=== PATIENT | male | born 1965 | race Caucasian/White ===

== ENCOUNTER 2017-04-19 09:54 | Emergency (ER) | payer BC ==
[2017-04-19 11:03] VITALS: BP 101/76
--- NOTE | 2017-04-19 11:11 | EDM.PDOC ---
ED HPI GENERAL MEDICAL PROBLEM - General Chief Complaint: Lower Extremity Injury/Pain Stated Complaint: LEG PAIN [id number] Time Seen by Provider: 04/19/17 11:21 Source of Information: Reports: Patient History Limitations: Reports: No Limitations - History of Present Illness INITIAL COMMENTS - FREE TEXT/NARRATIVE: Patient comes emergency department today complaining of right posterior calf pain. Just prior to arrival the patient was working outside when a log was coming towards him and he jumped backwards landing on his feet and developed right posterior calf pain with ambulation. He denies any lung force trauma to his right lower extremity. He denies any hip femur knee ankle or right foot pain. He does have pain with ambulation in the posterior aspect of his calf. He has not taken anything for pain prior to arrival. A sharp shooting stabbing in nature. Ice is applied upon arrival. Right Lower Leg Pain Score (Numeric/FACES): 4 - Related Data Allergies Allergy/AdvReac Type Severity Reaction Status Date / Time Penicillins Allergy Cannot Verified 04/19/17 10:27 Remember tetanus toxoid, adsorbed Allergy Cannot Verified 04/19/17 10:27 Remember Home Meds: Home Meds Aspirin [Ecotrin] 81 mg PO DAILY 10/01/13 [History] DULoxetine [Cymbalta] 60 mg PO DAILY 10/01/13 [History] Enalapril [Vasotec] 2.5 mg PO DAILY 10/01/13 [History] Fish Oil/[place]-3 Fatty Acids [Fish Oil] 1 gm PO BID 10/01/13 [History] Gabapentin [Gabapentin] 300 mg PO QID 10/01/13 [History] Simvastatin [Zocor] 40 mg PO BEDTIME 10/01/13 [History] metFORMIN [metFORMIN XR] 1,000 mg PO BIDM 10/01/13 [History] traMADol [Ultram] 50 mg PO Q6HR PRN 10/01/13 [History] Meloxicam [Mobic] 15 mg PO DAILY 05/07/16 [History] Cyclobenzaprine [Flexeril] 10 mg PO BEDTIME 04/19/17 [History] Past Medical History Musculoskeletal History: Reports: Back Pain, Chronic Endocrine/Metabolic History: Reports: Diabetes, Type II Social & Family History - Family History Family Medical History: Noncontributory - Tobacco Use Smoking Status *Q: Never Smoker Second Hand Smoke Exposure: No - Caffeine Use Caffeine Use: Reports: None - Recreational Drug Use Recreational Drug Use: No Review of Systems - Review of Systems Review Of Systems: ROS reveals no pertinent complaints other than HPI. ED EXAM, GENERAL - Physical Exam Exam: See Below Exam Limited By: No Limitations General Appearance: Alert, WD/WN, No Apparent Distress Extremities: Normal Inspection, No Pedal Edema, Normal Capillary Refill, Leg Pain (Posterior calf tenderness about mid calf. There is no bruising swelling and ecchymosis lumps bumps or other abnormalities of the calf. Achilles tendon is unremarkable. CMS is intact throughout the entirety of the right lower extremity. No bony deformity to the area of the right tib-fib region. He does have tenderness in the calf with dorsiflexion and plantar flexion of the right foot. Right ankle right knee right femur right hip are atraumatic and unremarkable.). No: Joint Swelling Neurological: Alert, Oriented, CN II-XII Intact Psychiatric: Normal Affect, Normal Mood Skin Exam: Warm, Dry, Intact, Normal Color Lymphatic: No Adenopathy Course - Vital Signs Last Recorded V/S: Last Vital Signs Temp 35.9 C 04/19/17 10:37 Pulse 83 04/19/17 11:02 Resp 16 04/19/17 11:02 BP 101/76 04/19/17 11:02 Pulse Ox 96 04/19/17 11:02 - Orders/Labs/Meds Orders: Active Orders 24 hr Category Date Time Status Tibia Fibula Rt [CR] Urgent Exams 04/19/17 11:19 Taken Meds: Medications Discontinued Medications Generic Name Dose Route Start Last Admin Trade Name Yolande PRN Reason Stop Dose Admin Ibuprofen 600 mg 04/19/17 11:19 04/19/17 11:32 Motrin PO 04/19/17 11:20 600 mg ONETIME ONE Administration - Radiology Interpretation Free Text/Narrative:: NO acute fracture per radiology. - Re-Assessments/Exams Free Text/Narrative Re-Assessment/Exam: 04/19/17 12:21 I reviewed the negative x-rays with the patient. His pain was somewhat improved with the ibuprofen. I feel that this is most likely a muscle strain at this time. We did put a 4 inch Igor wrap with almost complete resolution of pain in his right calf. We'll treat him conservatively at this time. He was comfortable with this plan and his questions were answered. Departure - Departure Time of Disposition: 12:13 Disposition: Home, Self-Care 01 Clinical Impression: Muscle strain - Discharge Information Instructions: Muscle Strain, [id number] Forms: ED Department Discharge Additional Instructions: Tylenol and/or ibuprofen for pain. Ibuprofen will most likely be more effective. Rest ice compression and elevation of the right injured extremity until symptom- free. Igor wrap as needed for comfort. May use your Flexeril at home for muscle spasms as well. Return to the emergency department if new or worsening symptoms. Follow-up with primary care provider the next 7 days if not improving sooner if worse. - My Orders Last 24 Hours: My Active Orders 04/19/17 11:19 Tibia Fibula Rt [CR] Urgent - Assessment/Plan Last 24 Hours: My Active Orders 04/19/17 11:19 Tibia Fibula Rt [CR] Urgent Assessment:: Left calf muscle strain Plan: Tylenol and/or ibuprofen for pain. Ibuprofen will most likely be more effective. Rest ice compression and elevation of the right injured extremity until symptom- free. Igor wrap as needed for comfort. May use your Flexeril at home for muscle spasms as well. Return to the emergency department if new or worsening symptoms. Follow-up with primary care provider the next 7 days if not improving sooner if worse.
[2017-04-19] MEDS ORDERED: Ibuprofen 600 MG Tab PO ONE (11:19)
== END 2017-04-19 12:25 | disposition home or self-care (01) ==
LOC: DL.ED 09:54
DX: S86.911A Strain of unspecified muscle(s) and tendon(s) at lower leg level, right leg, initial encounter (principal); E11.9 Type 2 diabetes mellitus without complications; Z79.84 Long term (current) use of oral hypoglycemic drugs; Z79.899 Other long term (current) drug therapy; Z79.82 Long term (current) use of aspirin; Z88.0 Allergy status to penicillin; Z88.7 Allergy status to serum and vaccine; W17.89XA Other fall from one level to another, initial encounter; Y93.39 Activity, other involving climbing, rappelling and jumping off; Y99.0 Civilian activity done for income or pay
CPT/HCPCS: 73590; 99284; A9270

== ENCOUNTER 2017-11-10 17:37 | Emergency (ER) | payer BC ==
[2017-11-10] MEDS ORDERED: Ondansetron 4 MG Tab.DIS PO ONE (17:38)
[2017-11-10] MEDS ORDERED: Sodium Chloride 0.9% 1,000 ML IV SCH (20:45)
[2017-11-10] MEDS ORDERED: Ondansetron 4 MG/2 ML SDV IV ONE (21:05)
[2017-11-10 21:23] LABS: CHLORIDE,CL 101 mmol/L (101-111); SODIUM,NA 133 mmol/L (135-145)
[2017-11-10] MEDS ORDERED: Acetaminophen 325 MG Tab PO ONE (21:43)
[2017-11-10] MEDS ORDERED: Sodium Chloride 0.9% 1,000 ML IV ONE (21:53)
--- NOTE | 2017-11-10 21:58 | EDM.PDOC ---
ED HPI GENERAL MEDICAL PROBLEM - General Chief Complaint: Gastrointestinal Problem Stated Complaint: [id number] FLU? Time Seen by Provider: 11/10/17 19:30 Source of Information: Reports: Patient History Limitations: Reports: No Limitations - History of Present Illness INITIAL COMMENTS - FREE TEXT/NARRATIVE: diarrhea since last claudia, 20 plus stools today. dizzy when up Abdomen Pain Score (Numeric/FACES): 8 - Related Data Allergies Allergy/AdvReac Type Severity Reaction Status Date / Time Penicillins Allergy Cannot Verified 04/19/17 10:27 Remember tetanus toxoid, adsorbed Allergy Cannot Verified 04/19/17 10:27 Remember Home Meds: Home Meds Aspirin [Ecotrin] 81 mg PO DAILY 10/01/13 [History] DULoxetine [Cymbalta] 60 mg PO DAILY 10/01/13 [History] Enalapril [Vasotec] 2.5 mg PO DAILY 10/01/13 [History] Fish Oil/[place]-3 Fatty Acids [Fish Oil] 1 gm PO BID 10/01/13 [History] Gabapentin 300 mg PO QID 10/01/13 [History] Simvastatin [Zocor] 40 mg PO BEDTIME 10/01/13 [History] metFORMIN [metFORMIN XR] 1,000 mg PO BIDM 10/01/13 [History] traMADol [Ultram] 50 mg PO Q6HR PRN 10/01/13 [History] Meloxicam [Mobic] 15 mg PO DAILY 05/07/16 [History] Cyclobenzaprine [Flexeril] 10 mg PO BEDTIME 04/19/17 [History] Past Medical History Cardiovascular History: Reports: High Cholesterol, Hypertension Musculoskeletal History: Reports: Back Pain, Chronic Psychiatric History: Reports: Anxiety, Depression Endocrine/Metabolic History: Reports: Diabetes, Type II Social & Family History - Family History Family Medical History: Noncontributory - Tobacco Use Smoking Status *Q: Never Smoker Second Hand Smoke Exposure: No - Caffeine Use Caffeine Use: Reports: Soda - Recreational Drug Use Recreational Drug Use: No ED ROS GENERAL - Review of Systems Review Of Systems: See Below Constitutional: Reports: Fever, Chills, Malaise, Weakness, Decreased Appetite HEENT: Reports: No Symptoms Respiratory: Reports: No Symptoms Cardiovascular: Reports: Lightheadedness GI/Abdominal: Reports: Abdominal Pain, Diarrhea, Decreased Appetite Musculoskeletal: Reports: No Symptoms Skin: Reports: No Symptoms Neurological: Reports: Headache ED EXAM, GI/ABD - Physical Exam Exam: See Below Exam Limited By: No Limitations General Appearance: Alert, No Apparent Distress Eyes: Bilateral: EOMI Ears: Normal External Exam Nose: Normal Inspection Throat/Mouth: Normal Lips, Other (membranes parched) Head: Atraumatic, Normocephalic Neck: Normal Inspection Respiratory/Chest: No Respiratory Distress, Lungs Clear, Normal Breath Sounds Cardiovascular: Normal Peripheral Pulses, Regular Rate, Rhythm GI/Abdominal Exam: Normal Bowel Sounds, Soft, Tender, Abnormal Bowel Sounds ( hyperactive) Back Exam: Normal Inspection Extremities: Normal Inspection Neurological: Alert, Oriented, Normal Cognition Psychiatric: Normal Affect, Normal Mood Skin Exam: Warm, Dry, Intact, Normal Color Course - Vital Signs Last Recorded V/S: Last Vital Signs Temp 101.0 F H 11/11/17 01:36 Pulse 98 11/11/17 01:36 Resp 19 11/11/17 01:36 BP 112/71 11/11/17 01:36 Pulse Ox 97 11/11/17 01:36 - Orders/Labs/Meds Orders: Active Orders 24 hr Category Date Time Status CULTURE BLOOD [BC] Stat Lab 11/10/17 20:30 Received CULTURE STOOL [RM] Stat Lab 11/11/17 00:27 Ordered SHIGA TOXIN 1 & 2 [MREF] Stat Lab 11/11/17 00:27 Received Labs: Laboratory Tests 11/10/17 11/10/17 11/10/17 Range/Units 20:30 20:30 20:30 WBC 12.7 H (5.0-10.0) 10^3/uL RBC 4.14 L (4.6-6.2) 10^6/uL Hgb 14.2 (14.0-18.0) g/dL Hct 40.6 (40.0-54.0) % MCV 98.1 (80-100) fL MCH 34.3 H (27.0-34.0) pg MCHC 35.0 (33.0-35.0) g/dL Plt Count 156 (150-450) 10^3/uL Neut % (Auto) 89.8 H (42.2-75.2) % Lymph % (Auto) 2.7 L (20.5-50.1) % Mobile % (Auto) 7.2 (2-8) % Eos % (Auto) 0.1 L (1.0-3.0) % Baso % (Auto) 0.2 (0.0-1.0) % Sodium 133 L (135-145) mmol/L Potassium 3.4 L (3.6-5.0) mmol/L Chloride 101 (101-111) mmol/L Carbon Dioxide 21.0 (21.0-31.0) mmol/L Anion Gap 14.4 BUN 14 (7-18) mg/dL Creatinine 0.9 (0.6-1.3) mg/dL Est Cr Clr Drug Dosing 99.94 mL/min Estimated GFR (MDRD) > 60 BUN/Creatinine Ratio 15.55 Glucose 193 H (74-105) mg/dL Lactic Acid 2.5 H (0.5-2.2) mmol/L Calcium 9.0 (8.4-10.2) mg/dl Total Bilirubin 2.8 H (0.2-1.0) mg/dL AST 38 (10-42) IU/L ALT 35 (10-60) IU/L Alkaline Phosphatase 68 (42-121) IU/L Total Protein 7.6 (6.7-8.2) g/dl Albumin 4.5 (3.2-5.5) g/dl Globulin 3.1 Albumin/Globulin Ratio 1.45 Amylase 23 L (28-100) U/L Lipase 24 (22-51) U/L Urine Color (YELLOW) Urine Appearance (CLEAR) Urine pH (5.0-9.0) Ur Specific [place] (1.005-1.030) Urine Protein (NEGATIVE) Urine Glucose (UA) (NEGATIVE) Urine Ketones (NEGATIVE) Urine Occult Blood (NEGATIVE) Urine Nitrite (NEGATIVE) Urine Bilirubin (NEGATIVE) Urine Urobilinogen (0.2-1.0) mg/dL Ur Leukocyte Esterase (NEGATIVE) Urine RBC /HPF Urine WBC (0-5/HPF) /HPF Ur Epithelial Cells /HPF Urine Bacteria (0-FEW/HPF) /HPF Urine Mucus /LPF 11/11/17 Range/Units 00:27 WBC (5.0-10.0) 10^3/uL RBC (4.6-6.2) 10^6/uL Hgb (14.0-18.0) g/dL Hct (40.0-54.0) % MCV (80-100) fL MCH (27.0-34.0) pg MCHC (33.0-35.0) g/dL Plt Count (150-450) 10^3/uL Neut % (Auto) (42.2-75.2) % Lymph % (Auto) (20.5-50.1) % Mobile % (Auto) (2-8) % Eos % (Auto) (1.0-3.0) % Baso % (Auto) (0.0-1.0) % Sodium (135-145) mmol/L Potassium (3.6-5.0) mmol/L Chloride (101-111) mmol/L Carbon Dioxide (21.0-31.0) mmol/L Anion Gap BUN (7-18) mg/dL Creatinine (0.6-1.3) mg/dL Est Cr Clr Drug Dosing mL/min Estimated GFR (MDRD) BUN/Creatinine Ratio Glucose (74-105) mg/dL Lactic Acid (0.5-2.2) mmol/L Calcium (8.4-10.2) mg/dl Total Bilirubin (0.2-1.0) mg/dL AST (10-42) IU/L ALT (10-60) IU/L Alkaline Phosphatase (42-121) IU/L Total Protein (6.7-8.2) g/dl Albumin (3.2-5.5) g/dl Globulin Albumin/Globulin Ratio Amylase (28-100) U/L Lipase (22-51) U/L Urine Color Yellow (YELLOW) Urine Appearance Clear (CLEAR) Urine pH 5.0 (5.0-9.0) Ur Specific [place] >= 1.030 (1.005-1.030) Urine Protein Trace H (NEGATIVE) Urine Glucose (UA) Negative (NEGATIVE) Urine Ketones 15 H (NEGATIVE) Urine Occult Blood Negative (NEGATIVE) Urine Nitrite Negative (NEGATIVE) Urine Bilirubin Negative (NEGATIVE) Urine Urobilinogen 0.2 (0.2-1.0) mg/dL Ur Leukocyte Esterase Negative (NEGATIVE) Urine RBC 0-5 /HPF Urine WBC 0-5 (0-5/HPF) /HPF Ur Epithelial Cells Occasional /HPF Urine Bacteria Few (0-FEW/HPF) /HPF Urine Mucus Moderate H /LPF Meds: Medications Discontinued Medications Generic Name Dose Route Start Last Admin Trade Name Yolande PRN Reason Stop Dose Admin Acetaminophen 650 mg 11/10/17 21:43 11/10/17 21:53 Tylenol PO 11/10/17 21:44 650 mg NOW ONE Administration Famotidine 20 mg 11/10/17 20:57 11/10/17 21:06 Pepcid IVPUSH 11/10/17 20:58 20 mg ONETIME ONE Administration Sodium Chloride 1,000 mls @ 999 mls/hr 11/10/17 20:45 11/10/17 20:35 Normal Saline IV 999 mls/hr ASDIRECTED HUI Administration Sodium Chloride 1,000 mls @ 999 mls/hr 11/10/17 21:53 11/10/17 21:57 Normal Saline IV 11/10/17 22:53 999 mls/hr .BOLUS ONE Administration Ibuprofen 600 mg 11/10/17 23:29 11/10/17 23:36 Motrin PO 11/10/17 23:30 600 mg ONETIME ONE Administration Ondansetron HCl 4 mg 11/10/17 21:05 11/10/17 21:08 Zofran IV 11/10/17 21:06 4 mg ONETIME ONE Administration Ondansetron HCl Confirm 11/11/17 01:42 11/11/17 01:48 Zofran Odt Administered 11/11/17 01:43 Not Given Dose 8 mg .ROUTE .STK-MED ONE - Re-Assessments/Exams Free Text/Narrative Re-Assessment/Exam: 11/11/17 03:00 Fever controlled with use of tylenol and ibuprofen.Abodominal pain improved, headache improved. One stool during ED. tolerating few sips liquid. Departure - Departure Time of Disposition: 00:55 Disposition: Home, Self-Care 01 Condition: Good Clinical Impression: Gastroenteritis, Diarrhea, Dehydration, mild - Discharge Information Instructions: Diarrhea, Adult, Dehydration, Adult, [id number] Forms: ED Department Discharge Additional Instructions: clear liquid diet small amounts more frequent, slowly advance as tolerated zofran 4mg ODT one every 6 hours as needed for nausea #2 follow up if symptoms worsen - My Orders Last 24 Hours: My Active Orders 11/10/17 20:30 CULTURE BLOOD [BC] Stat 11/11/17 00:27 CULTURE STOOL [RM] Stat SHIGA TOXIN 1 & 2 [MREF] Stat - Assessment/Plan Last 24 Hours: My Active Orders 11/10/17 20:30 CULTURE BLOOD [BC] Stat 11/11/17 00:27 CULTURE STOOL [RM] Stat SHIGA TOXIN 1 & 2 [MREF] Stat
[2017-11-10] MEDS ORDERED: Ibuprofen 600 MG Tab PO ONE (23:29)
[2017-11-11 01:37] VITALS: BP 112/71
[2017-11-11] MEDS ORDERED: Ondansetron 4 MG Tab.DIS ONE (01:42)
== END 2017-11-11 01:45 | disposition home or self-care (01) ==
LOC: DL.ED 17:37
DX: K52.9 Noninfective gastroenteritis and colitis, unspecified (principal); E86.0 Dehydration; E78.00 Pure hypercholesterolemia, unspecified; I10 Essential (primary) hypertension; E11.9 Type 2 diabetes mellitus without complications; Z88.0 Allergy status to penicillin; Z88.7 Allergy status to serum and vaccine; Z79.82 Long term (current) use of aspirin; Z79.899 Other long term (current) drug therapy; Z79.84 Long term (current) use of oral hypoglycemic drugs
CPT/HCPCS: 36415; 80053; 81001; 82150; 83605; 83690; 85025; 87040; 87045; 87046; 87804; 87899; 96361; 96374; 96375; 99284; A9270; J2405; J3490; J7030

== ENCOUNTER → 2018-12-24 | Outpatient (CLI) | payer BC | LOC: DL.MRI 13:40 | PROVIDERS: ATTEND Orthopaedic Surgery | DX: M25.512 Pain in left shoulder (principal); G89.29 Other chronic pain; M75.122 Complete rotator cuff tear or rupture of left shoulder, not specified as traumatic; M75.92 Shoulder lesion, unspecified, left shoulder; M19.012 Primary osteoarthritis, left shoulder | CPT/HCPCS: 73221-LT ==

== ENCOUNTER 2021-09-02 16:42 | Emergency (ER) | payer BC ==
[2021-09-02 16:54] VITALS: BP 142/117; PULSE 86
[2021-09-02 17:44] LABS: CORONAVIRUS COVID-19 NAA NEGATIVE (NEGATIVE); RESPIRATORY SYNCYTIAL VIR NAA NEGATIVE (NEGATIVE)
[2021-09-02 18:06] LABS: CHLORIDE,CL 106 mmol/L (98-107); SODIUM,NA 141 mmol/L (136-145)
[2021-09-02 18:07] LABS: ANION GAP 17.7 mEq/L (7-13)
[2021-09-02] MEDS ORDERED: Lactated Ringers 1,000 ML IV ONE (18:21)
[2021-09-02] MEDS ORDERED: Iopamidol 612 MG/ML 100 ML Bottle IVPUSH ONE (18:47)
[2021-09-02] MEDS ORDERED: Sodium Chloride 0.9% 1,000 ML IV ONE ×2 (19:22→20:39)
[2021-09-02 19:54] LABS: AMPHETAMINES,URINE NEGATIVE (NEGATIVE); BARBITURATES,URINE NEGATIVE (NEGATIVE); BENZODIAZEPINE,URINE NEGATIVE (NEGATIVE); MDMA (ECSTASY), URINE NEGATIVE (NEGATIVE); METHADONE,URINE NEGATIVE (NEGATIVE); METHAMPHETAMINES,URINE NEGATIVE (NEGATIVE); OPIATES,URINE NEGATIVE (NEGATIVE); OXYCODONE,URINE NEGATIVE (NEGATIVE); PHENCYCLIDINE,URINE NEGATIVE (NEGATIVE); TCA,URINE NEGATIVE (NEGATIVE)
== END 2021-09-02 21:15 | disposition home or self-care (01) ==
LOC: DL.ED 16:42
DX: R00.2 Palpitations (principal); E78.00 Pure hypercholesterolemia, unspecified; I10 Essential (primary) hypertension; E11.9 Type 2 diabetes mellitus without complications; Z20.822 Contact with and (suspected) exposure to COVID-19; Z88.0 Allergy status to penicillin; Z88.7 Allergy status to serum and vaccine; Z79.82 Long term (current) use of aspirin; Z79.899 Other long term (current) drug therapy
CPT/HCPCS: 0241U; 36415; 71045; 74177; 80053; 80305-QW; 81003; 82009; 83605; 83735; 85025; 86140; 93005; 99285-25; J7030; J7120; Q9967

== ENCOUNTER 2024-04-09 00:31 | Observation (INO) | payer BC ==
[2024-04-09] MEDS: Sodium Chloride 0.9% 1,000 ML IV ONE ×2 (00:57→02:08)
[2024-04-09 01:01] LABS: BASOPHILS PERCENT AUTO 0.2 % (0.0-1.0); EOSINOPHILS PERCENT AUTO 0.8 % (1.0-3.0); HEMATOCRIT 40.1 % (40.0-54.0); HEMOGLOBIN 13.3 g/dL (14.0-18.0); LYMPHOCYTES PERCENT AUTO 24.1 % (20.5-50.1); MEAN CORPUSCULAR HEMOGLOBIN 32.8 pg (27.0-34.0); MEAN CORPUSCULAR HGB CONC 33.2 g/dL (33.0-35.0); MONOCYTES PERCENT AUTO 7.5 % (2-8); NEUTROPHILS PERCENT AUTO 67.4 % (42.2-75.2); PLATELET COUNT,PLT 320 10^3/uL (150-450); RED BLOOD CELL COUNT 4.05 10^6/uL (4.6-6.2); WHITE BLOOD CELL COUNT,WBC 11.3 10^3/uL (5.0-10.0)
[2024-04-09 01:16] LABS: ALANINE AMINOTRANSFERASE,ALT 22 U/L (16-63); ALBUMIN 3.9 g/dL (3.4-5.0); ALKALINE PHOSPHATASE 119 U/L (46-116); ANION GAP 17.8 mEq/L (7-13); ASPARTATE AMNIOTRANSFERASE,AST 13 U/L (15-37); BILIRUBIN TOTAL 1.2 mg/dL (0.2-1.0); BLOOD UREA NITROGEN,BUN 18 mg/dL (7-18); BUN/CREATININE RATIO 18.4 (No establ ref range); CALCIUM 9.5 mg/dL (8.5-10.1); CARBON DIOXIDE,CO2 24 mmol/L (21-32); CHLORIDE,CL 103 mmol/L (98-107); CREATININE 0.98 mg/dL (0.70-1.30); EST CRCL DRUG DOSING (CG) 81.73 mL/min; ETHANOL BLOOD MEDICAL 20 mg/dL (0); GLUCOSE RANDOM 136 mg/dL (70-99); MAGNESIUM 1.8 mg/dL (1.8-2.4); POTASSIUM,K 3.8 mmol/L (3.5-5.1); PROTEIN TOTAL,TP 7.7 g/dL (6.4-8.2); SODIUM,NA 141 mmol/L (136-145)
[2024-04-09 01:18] LABS: ESTIMATED GFR 88 mL/min (>=60)
[2024-04-09 01:19] LABS: LACTIC ACID 5.4 mmol/L (0.4-2.0)
[2024-04-09 02:53] LABS: APPEARANCE,URINE CLEAR (CLEAR); BILIRUBIN,URINE NEGATIVE (NEGATIVE); COLOR,URINE YELLOW (YELLOW); GLUCOSE,URINE NEGATIVE (NEGATIVE); KETONES,URINE 15 (NEGATIVE); LEUKOCYTE ESTERASE,URINE NEGATIVE (NEGATIVE); NITRITE,URINE NEGATIVE (NEGATIVE); OCCULT BLOOD,URINE NEGATIVE (NEGATIVE); PROTEIN,URINE NEGATIVE (NEGATIVE); UROBILINOGEN,URINE 0.2 mg/dL (0.2-1.0)
[2024-04-09 03:35] LABS: LACTIC ACID 3.4 mmol/L (0.4-2.0)
[2024-04-09] MEDS: Cefepime 1 GM Vial IVPUSH ONE (04:01)
[2024-04-09] MEDS ORDERED: Acetaminophen/oxyCODONE 325-5 MG Tab PO PRN (04:43)
[2024-04-09] MEDS ORDERED: HYDROmorphone 1 MG/ML Syringe IVPUSH PRN (04:43)
[2024-04-09] MEDS ORDERED: Ondansetron 4 MG/2 ML SDV IVPUSH PRN (04:43)
[2024-04-09] MEDS ORDERED: Albuterol/Ipratropium 3.0-0.5 MG/3 ML Neb Soln NEB PRN (04:43)
[2024-04-09] MEDS ORDERED: Naloxone 2 MG/2 ML Syringe IVPUSH PRN (04:43)
[2024-04-09] MEDS ORDERED: Metoprolol Tartrate 5 MG/5 ML SDV IVPUSH PRN (07:40)
[2024-04-09] MEDS ORDERED: hydrALAZINE 20 MG/ML SDV IVPUSH PRN (07:40)
[2024-04-09] MEDS ORDERED: 50% Dextrose in Water 50 ML Syringe IVPUSH PRN (07:41)
[2024-04-09] MEDS ORDERED: Glucagon,Human Recombinant 1 MG Vial IM PRN (07:41)
[2024-04-09] MEDS ORDERED: Metoclopramide 10 MG/2 ML SDV IV PRN (07:43)
[2024-04-09] MEDS ORDERED: Magnesium Hydroxide 400 MG/5 ML Susp 30 ML Cup PO PRN (07:43)
[2024-04-09] MEDS ORDERED: Polyethylene Glycol 3350 Powder 17 GM Packet PO PRN (07:43)
[2024-04-09] MEDS ORDERED: Sennosides/Docusate Sodium 50-8.6 MG Tab PO PRN (07:43)
[2024-04-09] MEDS ORDERED: Melatonin 3 MG Tab PO PRN (07:43)
[2024-04-09 08:07] LABS: C-REACTIVE PROTEIN < 0.50 ng/dL (<=0.50)
[2024-04-09 08:17] LABS: T4 FREE 0.86 ng/dL (0.76-1.46); TSH ULTRASENSITIVE 1.71 uIU/mL (0.36-3.74)
[2024-04-09] MEDS ORDERED: Sodium Chloride 0.9% 100 ML IV PRN (08:19)
[2024-04-09] MEDS: Insulin Lispro 100 Units/ML 3 ML Vial SUBCUT SCH (09:31)
[2024-04-09] MEDS: Enoxaparin 40 MG/0.4 ML Syringe SUBCUT SCH (09:44)
[2024-04-09 10:41] LABS: AMPHETAMINES,URINE NEGATIVE (NEGATIVE); BARBITURATES,URINE NEGATIVE (NEGATIVE); BENZODIAZEPINE,URINE NEGATIVE (NEGATIVE); MDMA (ECSTASY), URINE NEGATIVE (NEGATIVE); METHADONE,URINE NEGATIVE (NEGATIVE); METHAMPHETAMINES,URINE NEGATIVE (NEGATIVE); OPIATES,URINE NEGATIVE (NEGATIVE); OXYCODONE,URINE NEGATIVE (NEGATIVE); PHENCYCLIDINE,URINE NEGATIVE (NEGATIVE); TCA,URINE NEGATIVE (NEGATIVE)
[2024-04-09] MEDS ORDERED: Cefepime 2 GM Vial IVPUSH SCH (12:00)
[2024-04-09] MEDS: Lactated Ringers 1,000 ML IV SCH (12:52)
[2024-04-09] MEDS: Acetaminophen 325 MG Tab PO PRN (16:07)
[2024-04-09] MEDS: Temazepam 15 MG Cap PO PRN (22:45)
[2024-04-10 06:45] LABS: BASOPHILS PERCENT AUTO 0.3 % (0.0-1.0); EOSINOPHILS PERCENT AUTO 1.9 % (1.0-3.0); HEMATOCRIT 34.5 % (40.0-54.0); HEMOGLOBIN 11.3 g/dL (14.0-18.0); LYMPHOCYTES PERCENT AUTO 26.3 % (20.5-50.1); MEAN CORPUSCULAR HEMOGLOBIN 32.7 pg (27.0-34.0); MEAN CORPUSCULAR HGB CONC 32.8 g/dL (33.0-35.0); MEAN CORPUSCULAR VOLUME 99.7 fL (80-100); MONOCYTES PERCENT AUTO 10.1 % (2-8); NEUTROPHILS PERCENT AUTO 61.4 % (42.2-75.2); PLATELET COUNT,PLT 224 10^3/uL (150-450); RED BLOOD CELL COUNT 3.46 10^6/uL (4.6-6.2); WHITE BLOOD CELL COUNT,WBC 5.7 10^3/uL (5.0-10.0)
[2024-04-10 07:18] LABS: ALBUMIN 3.1 g/dL (3.4-5.0); ANION GAP 10.9 mEq/L (7-13); BILIRUBIN TOTAL 1.3 mg/dL (0.2-1.0); BUN/CREATININE RATIO 10.5 (No establ ref range); CREATININE 0.76 mg/dL (0.70-1.30); EST CRCL DRUG DOSING (CG) 105.39 mL/min; POTASSIUM,K 3.9 mmol/L (3.5-5.1); PROTEIN TOTAL,TP 6.3 g/dL (6.4-8.2)
[2024-04-10 07:19] LABS: A/G RATIO 0.97
[2024-04-10 08:36] VITALS: BP 110/71; PULSE 74
== END 2024-04-10 10:08 | disposition home or self-care (01) ==
LOC: DL.ED 00:31 → DL.MS 03:50 → UNDOADMOB 04:00
PROVIDERS: ADMIT Internal Medicine; ATTEND Internal Medicine
DX: R55 Syncope and collapse (principal); R53.1 Weakness; E86.0 Dehydration; R74.02 Elevation of levels of lactic acid dehydrogenase [LDH]; I10 Essential (primary) hypertension; F41.8 Other specified anxiety disorders; E66.9 Obesity, unspecified; R29.6 Repeated falls; E87.29 Other acidosis; F10.129 Alcohol abuse with intoxication, unspecified; E11.65 Type 2 diabetes mellitus with hyperglycemia; E80.6 Other disorders of bilirubin metabolism; E86.9 Volume depletion, unspecified; E78.00 Pure hypercholesterolemia, unspecified; D72.829 Elevated white blood cell count, unspecified; Z98.890 Other specified postprocedural states; Z79.82 Long term (current) use of aspirin; Z79.899 Other long term (current) drug therapy; Z79.84 Long term (current) use of oral hypoglycemic drugs; Z88.0 Allergy status to penicillin; Z88.7 Allergy status to serum and vaccine; Y90.1 Blood alcohol level of 20-39 mg/100 ml
CPT/HCPCS: 36415; 70450; 71045; 80053; 80305-QW; 80307; 81003; 82306; 82550; 82947; 83605; 83735; 84145; 84439; 84443; 84484; 85025; 86140; 87040; 93005; 93010; 93880; 96361; 96365; 96366; 96375; 97161-GP; 97165-GO; 99223; 99238; 99284; 99285-25; A9270-GY; G0378; J0692; J1650; J3370; J7030; J7050; J7120